=== PATIENT | male | born 1975 | race Caucasian/White ===

== ENCOUNTER 2020-10-01 07:51 | Emergency (ER) | payer BC ==
[2020-10-01 08:10] VITALS: BP 119/79; PULSE 101
--- NOTE | 2020-10-01 08:43 | EDM.PDOC ---
ED HPI GENERAL MEDICAL PROBLEM - General Chief Complaint: Respiratory Problem Stated Complaint: PHENOMIA TYPE SYMPTOMS Time Seen by Provider: 10/01/20 08:24 Source of Information: Reports: Patient, RN Notes Reviewed History Limitations: Reports: No Limitations - History of Present Illness INITIAL COMMENTS - FREE TEXT/NARRATIVE: 45-year-old gentleman presents emergency department with a complaint of fevers cough shortness of breath he has had some blood-tinged sputum and his cough he was exposed Covid on 21 September he started having symptoms on 24 September, he did call into his primary care physician who prescribed azithromycin he is in the middle of the course of antibiotics Generalized Pain Score (Numeric/FACES): 5 - Related Data Allergies Allergy/AdvReac Type Severity Reaction Status Date / Time No Known Allergies Allergy Verified 10/01/20 08:10 Home Meds: Home Meds Latanoprost 1 drop EYEBOTH DAILY 12/15/14 [History] Azithromycin [Zithromax] 250 mg PO DAILY 10/01/20 [History] Citalopram Hydrobromide [Celexa] 10 mg PO DAILY 10/01/20 [History] Diltiazem HCl [Diltiazem 24Hr ER] 120 mg PO DAILY 10/01/20 [History] Past Medical History Other Cardiovascular History: SVT Psychiatric History: Reports: Anxiety - Past Surgical History GI Surgical History: Reports: Appendectomy Musculoskeletal Surgical History: Reports: Knee Replacement, Shoulder Surgery Social & Family History - Caffeine Use Caffeine Use: Reports: Coffee - Recreational Drug Use Recreational Drug Use: No ED ROS GENERAL - Review of Systems Review Of Systems: See Below Constitutional: Reports: Fever, Chills Respiratory: Reports: Shortness of Breath, Cough, Sputum Cardiovascular: Reports: Dyspnea on Exertion GI/Abdominal: Reports: No Symptoms ED EXAM, GENERAL - Physical Exam Exam: See Below Exam Limited By: No Limitations General Appearance: Alert, WD/WN, No Apparent Distress Nose: Normal Inspection, Normal Mucosa, No Blood Throat/Mouth: Normal Inspection, Normal Lips, Normal Teeth, Normal Gums, Normal Oropharynx, Normal Voice, No Airway Compromise Respiratory/Chest: No Respiratory Distress, Lungs Clear, Normal Breath Sounds, No Accessory Muscle Use, Chest Non-Tender Cardiovascular: Regular Rate, Rhythm, No Murmur GI/Abdominal: Soft, Non-Tender Course - Vital Signs Last Recorded V/S: Last Vital Signs Temp 97.7 F 03/07/21 08:06 Pulse 101 H 10/01/20 08:06 Resp 18 10/01/20 08:06 BP 119/79 10/01/20 08:06 Pulse Ox 95 10/01/20 08:06 - Orders/Labs/Meds Labs: Laboratory Tests 10/01/20 Range/Units 07:58 Influenza Type A RNA Negative (NEGATIVE) RSV RNA ([facility]) Negative (NEGATIVE) Influenza Type B RNA Negative (NEGATIVE) SARS-CoV-2 RNA ([facility]) Positive H (NEGATIVE) Departure - Departure Time of Disposition: 08:58 Disposition: Home, Self-Care 01 Condition: Fair Clinical Impression: COVID-19 - Discharge Information Instructions: COVID-19 Frequently Asked Questions, What You Should Know About COVID-19 to Protect Yourself and Others - CDC, COVID-19 Referrals: Colin Orta MD [Primary Care Provider] - Forms: ED Department Discharge Additional Instructions: Symptomatic care at this time follow-up with primary care as needed return to the emergency department worsening of symptoms Sepsis Event Note (ED) - Evaluation Sepsis Screening Result: Possible Sepsis Risk - Focused Exam Vital Signs: Vital Signs Temp Pulse Resp BP Pulse Ox 10/01/20 08:06 97.7 F 101 H 18 119/79 95 - Assessment/Plan Plan: Assessment Acuity = acute Site and laterality = viral syndrome Etiology = COVID-19 Manifestations = dyspnea, fever Location of injury = Home Lab values = COVID-19 positive influenza a and B- RSV negative Plan Symptomatic care at this time follow-up primary care as needed, I did talk to him about further evaluation which include a chest x-ray and blood work of which she declined at this time This note was dictated using [employer] voice recognition software please call with any questions on syntax or grammar.
[2020-10-01 08:56] LABS: CORONAVIRUS COVID-19 NAA POSITIVE (NEGATIVE)
== END 2020-10-01 09:13 | disposition home or self-care (01) ==
LOC: JP.ED 07:51
DX: U07.1 COVID-19 (principal)
CPT/HCPCS: 0241U; 99284